=== PATIENT | female | born 1965 | race Caucasian/White ===

== ENCOUNTER 2018-05-21 16:25 | Observation (INO) ==
[2018-05-21] MEDS ORDERED: Sod Chloride 0.9% Inj 1,000 ML IV.SIG ONE ×2 (16:46)
--- NOTE | 2018-05-21 16:56 | ED ---
HPI General Chief Complaint: Overdose Stated Complaint: Medical Time Seen by Provider: 05/21/18 16:37 History of Present Illness HPI Narrative: The patient was seen and examined in the presence of the nurse. This patient was found to be quite altered and obtunded at a bus stop. She managed to get onto a bus and the septic pump truck driver started driving but then noticed she was very altered and pulled over and called 911. She is not able to provide any history or review of systems. She is very altered. She was carrying a case of medications. She has a prescription for 60 Ativan tablets filled 2 days ago and there are only 21 in the bottle. She also has prescriptions for baclofen and other psychiatric medications. Related Data Home Medications Medication Instructions Recorded Confirmed baclofen 20 mg PO TID 05/21/18 05/21/18 buspirone 15 mg PO BID 05/21/18 05/21/18 diphenoxylate-atropine 2 tab PO Q6-8H 05/21/18 05/21/18 escitalopram oxalate 20 mg PO DAILY 05/21/18 05/21/18 gabapentin 100 mg PO TID 05/21/18 05/21/18 lorazepam 0.5 mg PO BID 05/21/18 05/21/18 olanzapine 2.5 mg PO DAILY 05/21/18 05/21/18 olanzapine [Zyprexa] 2.5 mg PO HS 05/21/18 05/21/18 omeprazole 40 mg PO DAILY 05/21/18 05/21/18 progesterone micronized 100 mg PO DAILY 05/21/18 05/21/18 torsemide 10 mg PO DAILY 05/21/18 05/21/18 Allergies Allergy/AdvReac Type Severity Reaction Status Date / Time No Allergy Information Allergy Verified 05/21/18 16:35 Available Review of Systems ROS Unobtainable ROS Unobtainable: unobtainable due to mental status PMFSH Medical History Medical History Medical history unknown (Acute) Surgical history unknown (Acute) Social History Social History Substance History: Unable to Obtain Smoking Status: Unknown if ever smoked How Often Do You Have a Drink Containing Alcohol: Unable to Obtain Recent Travel in [facility] within the Last 8 Weeks: No Recent Out of Country Travel within the Last 8 Weeks: No Immunization History Tetanus Immunization: Unable to Assess Exam Narrative Exam Narrative: GENERAL: Disheveled sedated patient SKIN: Focused skin assessment reveals no rash and nodules. Skin is Warm and dry. HEAD: Atraumatic. Normocephalic. EYES: Pupils equal and round. No scleral icterus. No injection or drainage. ENT: No nasal bleeding or discharge. Mucous membranes pink and moist. She has a gag reflex. She is controlling her airway at this time. NECK: Trachea midline. No JVD. CARDIOVASCULAR: Regular rate and rhythm. No murmur appreciated. RESPIRATORY: No accessory muscle use. Clear to auscultation. Breath sounds equal bilaterally. GASTROINTESTINAL: Abdomen soft, non-tender, nondistended. Hepatic and splenic margins not palpable. MUSCULOSKELETAL: No obvious deformities. No clubbing. No cyanosis. No edema. NEUROLOGICAL: Patient is very drowsy and altered. Her GCS however is 14. She will bottom liquor attendant my hands when I requested. She will open her eyes to loud voice. She is able to answer some basic things like tell me her name. A lot of the questions she just looks at me blankly and does not say anything. Her speech is slurred and difficult to understand. . PSYCHIATRIC: Impossible to test mood and affect; insight and judgment poor. Course Initial Documented Vital Signs Pulse Rate 87 05/21/18 16:27 Respiratory Rate 14 05/21/18 16:27 Blood Pressure 101/61 05/21/18 16:27 Pulse Oximetry 95 05/21/18 16:27 Last Documented Vital Signs Pulse Rate 83 05/21/18 18:24 Respiratory Rate 12 05/21/18 18:24 Blood Pressure 132/76 05/21/18 18:24 Pulse Oximetry 100 05/21/18 18:24 Critical Care Time Critical Care Time: Yes Total Critical Care Time: 77 Attestation: Aggregate critical care time was 77 minutes. Time to perform other separately billable procedures was not included in the critical care time. My time did not include minutes spent treating any other patients simultaneously or on activities that did not directly contribute to the patient's treatment. The services I provided to this patient were to treat and/or prevent clinically significant deterioration that could result in: Loss of airway, aspiration, cardiopulmonary arrest I provided critical care services requiring my management, as noted below: Chart data review, documentation time, medication orders and management, vital sign assessments/reviewing monitor data, ordering and reviewing lab tests, ordering and interpreting/reviewing x-rays and diagnostic studies, care of the patient and discussion of the patient with the admitting physicians. Medical Decision Making MDM Narrative Medical decision making narrative: This is an unknown age female who was found altered at the bus stop. Presentation seems most likely to be an overdose. She is carrying multiple sedating medications and some are clearly missing such as the Ativan from a recently filled prescription. She has pill fragments in the corners of each mouth. She is controlling her airway GCS is 14 but she will require close observation and frequent rechecks. She will need her airway monitored but I do not feel the need to intubate her at this time. If she worsens that we will change. Multiple rechecks have revealed that she is gradually improving over the couple hours she has been here. I think at this point she is stable for regular floor. She saturates at 100% and is controlling her airway. Labs are reviewed. She is a Ativan overdose and possibly multidrug overdose. I reviewed with the hospitalist who will admit. Medical Screen Exam Complete: Yes Emergency Medical Condition: Yes Lab Data Lab results reviewed: Yes I reviewed the patient's lab results. Lab results narrative: Labs reasonably normal Result diagrams: 05/21/18 16:55 05/21/18 16:55 Lab Results 05/21/18 05/21/18 05/21/18 Range/Units 16:55 16:55 16:55 WBC 6.5 (4.0-11.0) th/mm3 RBC 3.97 L (4.00-5.30) mil/mm3 Hgb 13.2 (11.6-15.3) gm/dL Hct 37.5 (35.0-46.0) % MCV 94.6 (80.0-100.0) fL MCH 33.3 (27.0-34.0) pg MCHC 35.2 (32.0-36.0) % RDW 12.0 (11.6-17.2) % Plt Count 195 (150-450) th/mm3 MPV 7.8 (7.0-11.0) fL Neut % (Auto) 65.9 (16.0-70.0) % Lymph % (Auto) 21.7 (9.0-44.0) % [place] % (Auto) 9.6 H (0.0-8.0) % Eos % (Auto) 1.8 (0.0-4.0) % Baso % (Auto) 1.0 (0.0-2.0) % Neut # (Auto) 4.3 (1.8-7.7) th/mm3 Lymph # (Auto) 1.4 (1.0-4.8) th/mm3 [place] # (Auto) 0.6 (0.0-0.9) th/mm3 Eos # (Auto) 0.1 (0.0-0.4) th/mm3 Baso # (Auto) 0.1 (0.0-0.2) th/mm3 WBC Differential . Differential Comment Auto diff final Sodium 142 (136-145) meq/L Potassium 3.3 L (3.5-5.1) meq/L Chloride 108 H (98-107) meq/L Carbon Dioxide 28.0 (21.0-32.0) meq/L Anion Gap 6 (5-15) meq/L BUN 12 (7-18) mg/dL Creatinine 0.96 (0.50-1.00) mg/dL Estimated GFR 50 L (>89) mL/min Random Glucose 92 (74-106) mg/dL Calcium 8.3 L (8.5-10.1) mg/dL Total Bilirubin 0.3 (0.2-1.0) mg/dL AST 19 (15-37) U/L ALT 19 (10-53) U/L Alkaline Phosphatase 73 (45-117) U/L Total Protein 6.7 (6.4-8.2) g/dL Albumin 3.6 (3.4-5.0) g/dL Salicylates 6.1 (2.8-20.0) mg/dL Acetaminophen Less than 2.0 L (10.0-30.0) mcg/mL Serum Alcohol Less than 3 (0-5) mg/dL Imaging Data Attestation: I personally reviewed and interpreted this imaging study as follows : My impression: Brain CT normal Radiologist's impression: Head CT 05/21/18 16:49 CONCLUSION: 1. Unremarkable CT scan of the brain. . Discharge Plan Discharge Order Discharge Orders: Discharge Order (Routine); Ordered 05/21/18 Ordered By: Nikhil Power Physicians Team ED Provider: Nikhil Power Rxs /Orders / Referrals /Forms Prescriptions: No Action torsemide 10 mg Tablet 10 mg PO DAILY RF: 0 diphenoxylate-atropine 2.5-0.025 mg Tablet 2 tab PO Q6-8H RF: 0 olanzapine [Zyprexa] 2.5 mg Tablet 2.5 mg PO HS RF: 0 olanzapine 2.5 mg Tablet 2.5 mg PO DAILY RF: 0 omeprazole 40 mg Capsule,Delayed Release(Dr/Ec) 40 mg PO DAILY RF: 0 baclofen 20 mg Tablet 20 mg PO TID RF: 0 lorazepam 0.5 mg Tablet 0.5 mg PO BID RF: 0 progesterone micronized 200 mg Capsule 100 mg PO DAILY RF: 0 gabapentin 100 mg Capsule 100 mg PO TID RF: 0 buspirone 15 mg Tablet 15 mg PO BID RF: 0 escitalopram oxalate 20 mg Tablet 20 mg PO DAILY RF: 0 Discharge Interventions Interventions: Vital Signs Last Done: 05/21/18 18:24 Status ED Status: With Doctor
[2018-05-21 17:00] LABS: Baso # (Auto) 0.1 th/mm3 (0.0-0.2); Eos # (Auto) 0.1 th/mm3 (0.0-0.4); Eos % (Auto) 1.8 % (0.0-4.0); Hematocrit 37.5 % (35.0-46.0); Hemoglobin 13.2 gm/dL (11.6-15.3); Lymph # (Auto) 1.4 th/mm3 (1.0-4.8); Lymph % (Auto) 21.7 % (9.0-44.0); Mean Corpuscular HGB Conc 35.2 % (32.0-36.0); Mean Corpuscular Hemoglobin 33.3 pg (27.0-34.0); Mean Corpuscular Volume 94.6 fL (80.0-100.0); Mean Platelet Volume 7.8 fL (7.0-11.0); Mono # (Auto) 0.6 th/mm3 (0.0-0.9); Mono % (Auto) 9.6 % (0.0-8.0); Neut # (Auto) 4.3 th/mm3 (1.8-7.7); Neut % (Auto) 65.9 % (16.0-70.0); Platelet Count 195 th/mm3 (150-450); Red Blood Count 3.97 mil/mm3 (4.00-5.30); White Blood Count 6.5 th/mm3 (4.0-11.0)
--- NOTE | 2018-05-21 17:25 | CT ---
EXAM DATE: 05/21/2018 4:55 PM EDT AGE/SEX: 89 years / Female INDICATIONS: Altered mental status. CLINICAL DATA: This is the patient's initial encounter. Patient reports that signs and symptoms have been present for 1 day and indicates a pain score of Nonresponsive. MEDICAL/SURGICAL HISTORY: Non-responsive. Non-responsive. RADIATION DOSE: 56.35 CTDI (mGy) COMPARISON: No prior exams available for comparison. TECHNIQUE: CT of the head without contrast. Using automated exposure control and adjustment of the mA and/or kV according to patient size, radiation dose was kept as low as reasonably achievable to ob tain optimal diagnostic quality images. DICOM format image data is available electronically for revi ew and comparison. FINDINGS: Cerebrum: The ventricles are normal for age. No evidence of midline shift, mass lesion, hemorrhage or acute infarction. No extraaxial fluid collections are seen. Posterior Fossa: The cerebellum and brainstem are intact. The 4th ventricle is midline. The cerebe llopontine angle is unremarkable. Extracranial: The visualized portion of the orbits is intact. Skull: The calvaria is intact. No evidence of skull fracture. CONCLUSION: 1. Unremarkable CT scan of the brain. . Electronically signed by: Herberth Pizano MD 05/21/2018 5:24 PM EDT
[2018-05-21 17:27] LABS: Albumin 3.6 g/dL (3.4-5.0); Anion Gap 6 meq/L (5-15); Aspartate Aminotransferase 19 U/L (15-37); Blood Urea Nitrogen 12 mg/dL (7-18); Calcium 8.3 mg/dL (8.5-10.1); Chloride 108 meq/L (98-107); Glomerular Filtration Rate 50 mL/min (>89); Glucose,Random 92 mg/dL (74-106); Potassium 3.3 meq/L (3.5-5.1); Sodium 142 meq/L (136-145)
[2018-05-21 17:28] LABS: Alanine Aminotransferase 19 U/L (10-53)
[2018-05-21 17:30] LABS: Alkaline Phosphatase 73 U/L (45-117); Total Protein 6.7 g/dL (6.4-8.2)
[2018-05-21] MEDS ORDERED: Bisacodyl 10 MG Supp RECTAL PRN (19:18)
[2018-05-21] MEDS ORDERED: Acetaminophen 325 MG Tablet PO PRN (19:18)
--- NOTE | 2018-05-21 19:41 | P.HPIM ---
History of Present Illness Primary Care Physician: UNKNOWN History of Present Illness: This is a middle-aged white female with unknown PMH who was brought to the ER by EMS as a Nicolette Brewster for AMS. Pt had apparently gotten onto a bus earlier today , business performance specialist noted pt to be lethargic/altered and called 911. Pt found to have multiple pills crushed inside of her mouth and had prescription bottle among her belongings for Ativan 0.5mg filled on 05/19/18 w/ only 20 tablets remaining. On arrival, pt w/ significant lethargy, however maintaining airway. Now more arousable, able to state her name is Perla. BP 132/76, HR 83, O2 sat 100% on 2L NC. CBC unremarkable. K+ 3.3. GFR 50. Urine Drug Screen pending. CT Head unremarkable. - Diagnosis (1) Overdose (2) Dehydration (3) Hypokalemia Review of Systems PAST FAMILY HISTORY: Unknown unobtainable due to mental status PMFSH - History History Provided By: Patient - Medical History Medical History: Medical History (Last Updated 05/21/18 @ 16:31 by Dinora Thurston) Medical history unknown Surgical history unknown - Tobacco History Smoking Status: Unknown if ever smoked - Alcohol History How Often Do You Have a Drink Containing Alcohol: Unable to Obtain - Substance Use History Substance History: Unable to Obtain - Travel History Recent Travel in the [place] Within the Last 8 Weeks: No Recent Travel Out of the Country Within the Last 8 Weeks: No - Immunization History Tetanus Immunization: Unable to Assess Medications and Allergies Active Medications: Active Medications Acetaminophen (Tylenol) 650 mg PO Q4H PRN PRN Reason: Temp > 100.4 Al Hydroxide/Mg Hydroxide (Milk Of Magnesia Liq) 30 ml PO Q12H PRN PRN Reason: Mild Constipation Bisacodyl (Dulcolax Supp) 10 mg RECTAL DAILY PRN PRN Reason: SEVERE CONSITIPATION Sodium Chloride (Ns Inj) 1,000 mls @ 100 mls/hr IV.CONT .Q10H KIERA Lactulose (Lactulose Liq) 30 ml PO DAILY PRN PRN Reason: SEVERE CONSITIPATION Ondansetron HCl (Zofran Inj) 4 mg IV.PUSH Q6H PRN PRN Reason: NAUSEA OR VOMITING Senna/Docusate Sodium (Nicki-Colace) 1 tab PO BID KIERA Sennosides (Senokot) 17.2 mg PO Q12H PRN PRN Reason: Moderate Constipation Allergies Allergy/AdvReac Type Severity Reaction Status Date / Time No Allergy Information Allergy Verified 05/21/18 16:35 Available Home Medications Medication Instructions Recorded Confirmed Type baclofen 20 mg PO TID 05/21/18 05/21/18 History buspirone 15 mg PO BID 05/21/18 05/21/18 History diphenoxylate-atropine 2 tab PO Q6-8H 05/21/18 05/21/18 History escitalopram oxalate 20 mg PO DAILY 05/21/18 05/21/18 History gabapentin 100 mg PO TID 05/21/18 05/21/18 History lorazepam 0.5 mg PO BID 05/21/18 05/21/18 History olanzapine 2.5 mg PO DAILY 05/21/18 05/21/18 History olanzapine [Zyprexa] 2.5 mg PO HS 05/21/18 05/21/18 History omeprazole 40 mg PO DAILY 05/21/18 05/21/18 History progesterone micronized 100 mg PO DAILY 05/21/18 05/21/18 History torsemide 10 mg PO DAILY 05/21/18 05/21/18 History Exam Vital signs: Vital Signs 05/21/18 16:27 05/21/18 16:43 05/21/18 17:08 Pulse Rate 87 91 H 80 Respiratory Rate 14 12 Blood Pressure 101/61 106/62 Pulse Oximetry 95 100 05/21/18 17:10 05/21/18 18:24 05/21/18 19:00 Pulse Rate 83 80 Respiratory Rate 12 Blood Pressure 132/76 Pulse Oximetry 99 100 05/21/18 19:34 Pulse Rate 80 Respiratory Rate 16 Blood Pressure 100/67 Pulse Oximetry 100 Intake & Output 05/21/18 05/21/18 05/22/18 06:59 18:59 06:59 Intake Total 1999 Balance 1999 Weight 58.967 kg Intake: IV 1999 NS Inj 1,000 ML @ Wide Open IV. 1999 SIG BOLUS ONE Rx#:[id number] Narrative: PE: GENERAL: Middle-aged white female in no acute distress, lethargic from overdose , opens eyes to voice, mouthing few words. SKIN: Focused skin assessment warm and dry. HEENT: PERRLA, EOMI. No scleral icterus or conjunctival pallor. No lid lag or facial droop. CARDIOVASCULAR: Regular rate and rhythm. No obvious murmurs to auscultation. No chest tenderness to palpation. RESPIRATORY: No obvious rhonchi or wheezing. Clear to auscultation. Breath sounds equal bilaterally. GASTROINTESTINAL: Abdomen soft, non-tender, nondistended. BS normal. MUSCULOSKELETAL: Extremities without clubbing, cyanosis, or edema. No obvious deformities. NEUROLOGICAL: Lethargic due to overdose. No focal neurologic deficits. Moving both upper and lower extremities spontaneously. PSYCHIATRIC: Appropriate mood and affect. Insight and judgment normal. Results - Labs CBC & Chem 7: 05/21/18 16:55 05/21/18 16:55 Labs: Short CBC 05/21/18 Range/Units 16:55 WBC 6.5 (4.0-11.0) th/mm3 Hgb 13.2 (11.6-15.3) gm/dL Hct 37.5 (35.0-46.0) % Plt Count 195 (150-450) th/mm3 BMP 05/21/18 16:55 Sodium 142 Potassium 3.3 L Chloride 108 H Carbon Dioxide 28.0 BUN 12 Creatinine 0.96 Calcium 8.3 L Liver Function 05/21/18 Range/Units 16:55 Total Bilirubin 0.3 (0.2-1.0) mg/dL AST 19 (15-37) U/L ALT 19 (10-53) U/L Alkaline Phosphatase 73 (45-117) U/L Albumin 3.6 (3.4-5.0) g/dL - Imaging Impressions Head CT 05/21/18 16:49 CONCLUSION: 1. Unremarkable CT scan of the brain. . Caprini VTE Risk Assessment Caprini VTE Risk Assessment: No/Low Risk (score <= 1) Caprini Risk Assessment Model: Point Value = 1 Point Value = 2 Point Value = 3 Point Value = 5 Age 41-60 Minor surgery BMI > 25 kg/m2 Swollen legs Varicose veins or History of unexplained or recurrent spontaneous Oral contraceptives or hormone replacement Sepsis (< 1 month) Serious lung disease, including pneumonia (< 1 month) Abnormal pulmonary function Acute myocardial infarction Congestive heart failure (< 1 month) History of inflammatory bowel disease Medical patient at bed rest Age 61-74 Arthroscopic surgery Major open surgery (> 45 min) Laparoscopic surgery (> 45 min) Malignancy Confined to bed (> 72 hours) Immobilizing plaster cast Central venous access Age >= 75 History of VTE Family history of VTE Factor V Leiden Prothrombin [id number] Lupus anticoagulant Anticardiolipin antibodies Elevated serum homocysteine Heparin-induced thrombocytopenia Other congenital or acquired thrombophilia Stroke (< 1 month) Elective arthroplasty Hip, pelvis, or leg fracture Acute spinal cord injury (< 1 month) Prophylaxis Regimen: Total Risk Factor Score Risk Level Prophylaxis Regimen 0-1 Low Early ambulation 2 Moderate Order ONE of the following: *Sequential Compression Device (SCD) *Heparin 5000 units SQ BID 3-4 Higher Order ONE of the following medications: *Heparin 5000 units SQ TID *Enoxaparin/Lovenox 40 mg SQ daily (WT < 150 kg, CrCl > 30 mL/min) *Enoxaparin/Lovenox 30 mg SQ daily (WT < 150 kg, CrCl > 10-29 mL/min) *Enoxaparin/Lovenox 30 mg SQ BID (WT < 150 kg, CrCl > 30 mL/min) AND/OR *Sequential Compression Device (SCD) 5 or more Highest Order ONE of the following medications: *Heparin 5000 units SQ TID (Preferred with Epidurals) *Enoxaparin/Lovenox 40 mg SQ daily (WT < 150 kg, CrCl > 30 mL/min) *Enoxaparin/Lovenox 30 mg SQ daily (WT < 150 kg, CrCl > 10-29 mL/min) *Enoxaparin/Lovenox 30 mg SQ BID (WT < 150 kg, CrCl > 30 mL/min) AND *Sequential Compression Device (SCD) Assessment and Plan - Assessment (1) Overdose Code(s): T50.901A - Poisoning by unspecified drugs, medicaments and biological substances, accidental (unintentional), initial encounter Status: Acute (2) Dehydration Code(s): E86.0 - Dehydration Status: Acute (3) Hypokalemia Code(s): E87.6 - Hypokalemia Status: Acute - Plan A/P: 1. Overdose: found to be lethargic/altered by business performance specialist, +crushed pills in her mouth, prescription bottle for Ativan 0.5mg filled on 05/19/18 for 60 tablets w/ 20 tablets remaining. Maintaining airway. Slightly more arouseable now, opens eyes to voice, mouths few words. Admit for further observation, Neuro Checks. 2. Dehydration: GFR 50, IVF for hydration, monitor I/O, repeat labs in am. 3. Hypokalemia: K+ 3.3, repeat labs in am, replace as needed 4. DVT Prophylaxis: SCD/Teds 5. Social work for d/c planning as needed 6. Case discussed w/ ER physician at length, labs/records/imaging reviewed by me.
[2018-05-21] MEDS: Sod Chloride 0.9% Inj 1,000 ML IV.CONT SCH (19:49)
[2018-05-21] MEDS: Senna/Docusate Sodium 8.6/50 MG Tablet PO SCH (20:01)
[2018-05-22] MEDS: Sod Chloride 0.9% Inj 1,000 ML IV.CONT SCH (07:30)
[2018-05-22 08:09] LABS: Amphetamine Screen,Urine Neg (Neg); Barbiturate Screen,Urine Neg (Neg); Cannabinoid Screen,Urine Neg (Neg); Cocaine Screen,Urine Neg (Neg)
[2018-05-22 08:17] LABS: Opiate Screen,Urine Neg (Neg)
[2018-05-22 08:32] LABS: Baso % (Auto) 0.6 % (0.0-2.0); Eos # (Auto) 0.2 th/mm3 (0.0-0.4); Eos % (Auto) 2.8 % (0.0-4.0); Hematocrit 36.4 % (35.0-46.0); Hemoglobin 12.4 gm/dL (11.6-15.3); Lymph # (Auto) 1.5 th/mm3 (1.0-4.8); Lymph % (Auto) 23.9 % (9.0-44.0); Mean Corpuscular Hemoglobin 32.8 pg (27.0-34.0); Mean Corpuscular Volume 96.5 fL (80.0-100.0); Mono # (Auto) 0.6 th/mm3 (0.0-0.9); Mono % (Auto) 9.5 % (0.0-8.0); Neut % (Auto) 63.2 % (16.0-70.0); Platelet Count 180 th/mm3 (150-450); Red Blood Count 3.78 mil/mm3 (4.00-5.30); Red Cell Distribution Width 12.1 % (11.6-17.2); White Blood Count 6.3 th/mm3 (4.0-11.0)
[2018-05-22 08:53] LABS: Albumin 2.8 g/dL (3.4-5.0); Calcium 7.4 mg/dL (8.5-10.1); Carbon Dioxide 26.9 meq/L (21.0-32.0); Potassium 3.7 meq/L (3.5-5.1); Total Protein 5.4 g/dL (6.4-8.2)
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
[2018-05-22] MEDS: Senna/Docusate Sodium 8.6/50 MG Tablet PO SCH ×2 (10:59→20:55)
[2018-05-22] MEDS ORDERED: Diphenoxylate/Atropine 2.5/0.025 MG Tablet PO PRN (17:26)
[2018-05-22] MEDS: Thyroid 15 MG Tablet PO SCH (17:36)
[2018-05-22] MEDS: Gabapentin 100 MG Capsule PO SCH (18:16)
[2018-05-22] MEDS: Mesalamine 250 MG Capsule ER PO SCH ×2 (18:16→20:53)
[2018-05-23 04:59] LABS: Calcium 8.4 mg/dL (8.5-10.1); Carbon Dioxide 25.3 meq/L (21.0-32.0); Potassium 3.6 meq/L (3.5-5.1)
[2018-05-23] MEDS ORDERED: PROGESTERONE MICRONIZED 100 MG PO SCH (09:00)
[2018-05-23] MEDS: Senna/Docusate Sodium 8.6/50 MG Tablet PO SCH ×2 (09:16→21:45)
[2018-05-23] MEDS: Gabapentin 100 MG Capsule PO SCH ×2 (09:16→13:16)
[2018-05-23] MEDS: Thyroid 15 MG Tablet PO SCH (09:17)
[2018-05-23] MEDS: Mesalamine 250 MG Capsule ER PO SCH ×4 (09:17→21:45)
--- NOTE | 2018-05-23 10:25 | P.PNIM ---
Subjective Interval history: States that she is not suicidal. She has no thoughts of harming herself or others. She does not recall why she had pills in her mouth and what led to her admission. She states that she was kicked out of her previous residence due to slurring her speech. She states that she had a history of traumatic brain injury and therefore's at times slurs her speech. She does not attribute that to drug abuse or drug use. She does smoke 1 pack of cigarettes on a daily basis basis and is craving for nicotine right now. She states that she has chronic pain syndrome due to degenerative joint disease and having hip replacements in the past. She takes gabapentin 900 mg p.o. 3 times daily. She has severe anxiety disorder which she takes BuSpar, Lexapro, doxepin, Zyprexa two-point 5 at night. She states that she wants to be released today. Physical Exam Vital signs: Vital Signs 05/22/18 12:00 05/22/18 16:00 05/22/18 20:00 Temperature 98.5 F 97.6 F 98.2 F Pulse Rate 93 H 76 85 Respiratory Rate 16 16 16 Blood Pressure 91/54 L 103/61 104/60 Pulse Oximetry 99 99 98 05/22/18 20:07 05/23/18 00:00 05/23/18 00:42 Temperature 98.0 F Pulse Rate 84 91 H 90 Respiratory Rate 16 Blood Pressure 103/61 Pulse Oximetry 94 L 05/23/18 04:00 05/23/18 04:04 05/23/18 05:24 Temperature 97.7 F Pulse Rate 85 84 Respiratory Rate 16 18 Blood Pressure 130/66 Pulse Oximetry 94 L Intake & Output 05/22/18 05/23/18 05/23/18 18:59 06:59 18:59 Intake Total 1100 / 1100 Output Total 1800 / 1800 Balance -700 / -700 Weight 58.9 kg Intake: IV 1000 / 1000 NS Inj 1,000 ML @ 100 mls/hr IV 1000 / 1000 .CONT .Q10H KIERA Rx#:[id number] Oral 100 / 100 Output: Urine Amount (Catheter) 1800 / 1800 Straight 1800 / 1800 Other: # Voids 1 4 Date of Last Bowel Movement 05/20/18 # Bowel Movements 0 1 Narrative: GENERAL: This is a well-nourished, well-developed patient, in no apparent distress. CARDIOVASCULAR: Regular rate and rhythm RESPIRATORY: Clear to auscultation. Breath sounds equal bilaterally. No wheezes , rales, or rhonchi. GASTROINTESTINAL: Abdomen soft, non-tender, nondistended. Normal active bowel sounds MUSCULOSKELETAL: Extremities without clubbing, cyanosis, or edema. NEURO: Alert & Oriented x4 to person, place, time, situation. Moves all ext x4 - Urinary Catheter Management Straight Cath placed during this visit: no Results - Labs CBC & Chem 7: 05/22/18 05:38 05/23/18 03:42 Laboratory Results - last 24 hr 05/23/18 03:42 Sodium 142 Potassium 3.6 Chloride 110 H Carbon Dioxide 25.3 Anion Gap 7 BUN 10 Creatinine 0.66 Estimated GFR 77 L Random Glucose 83 Calcium 8.4 L D Assessment and Plan - Assessment (1) Overdose Code(s): T50.901A - Poisoning by unspecified drugs, medicaments and biological substances, accidental (unintentional), initial encounter Status: Acute (2) Dehydration Code(s): E86.0 - Dehydration Status: Acute (3) Hypokalemia Code(s): E87.6 - Hypokalemia Status: Acute - Plan middle age female admitted for OD, poss intentional. Hx of substance abuse, has been clean x 65 days, currently living at a sober home. Was kicked out 05/21 and was upset and took pills. Denies SI at this time. Drug overdose: found to be lethargic/altered by day haul or farm charter bus driver, +crushed pills in her mouth, prescription bottle for Ativan 0.5mg filled on 05/19/18 for 60 tablets w/ 20 tablets remaining. Also on Buspar, Baclofen, Doxepin, Gabapentin Denies illegal drug use, hx of meth and percocet abuse Hx of anxiety, with prior psych admission UDT negative -Hold all medications until evaluated by psychiatry neuro checks has been stable and patient is currently alert and oriented x4 -Continue with supportive care and sitter in room -Await psychiatry consultation. Dehydration with hypernatremia -IVF given, now resolved. Patient has tolerated p.o. Hypokalemia: K+ 3.3 -K 3.7 today Hx of Ulcerative colitis -stable has 2 BMs daily On Asacol -hold for now Tobacco abuse -Counseling done -Nicotine patch ordered Chronic pain syndrome - start gabapentin SCDs for DVT prophylaxis Discharge Planning: Discharge plan based on psychiatry evaluation.
[2018-05-23] MEDS ORDERED: clonazePAM 0.5 MG Tablet PO STA (16:07)
[2018-05-23] MEDS: Escitalopram 10 MG Tablet PO SCH (16:12)
[2018-05-23] MEDS: Gabapentin 300 MG Capsule PO SCH (17:54)
[2018-05-23] MEDS ORDERED: ALPRAZolam 0.25 MG Tablet PO ONE (22:11)
[2018-05-24] MEDS: clonazePAM 0.5 MG Tablet PO SCH ×2 (06:13→08:10)
[2018-05-24] MEDS: Gabapentin 300 MG Capsule PO SCH ×2 (08:11→12:17)
[2018-05-24] MEDS: Senna/Docusate Sodium 8.6/50 MG Tablet PO SCH (08:11)
[2018-05-24] MEDS: Mesalamine 250 MG Capsule ER PO SCH ×2 (08:11→12:17)
[2018-05-24] MEDS: Thyroid 15 MG Tablet PO SCH (08:11)
[2018-05-24] MEDS: Escitalopram 10 MG Tablet PO SCH (08:11)
[2018-05-24 09:01] VITALS: RESP 18; O2SAT 96
[2018-05-24 12:17] VITALS: BP 91/58; PULSE 106; TEMP 98.2
--- NOTE | 2018-05-24 13:52 | P.CONPSY ---
Provisional Diagnosis Admission Date: May 21, 2018 19:18 [place] I.: Substance-induced psychosis, methamphetamines and opiates use disorder, early full remission, alcohol use disorder, sustained full remission, history of anxiety, OCD, substance-induced psychosis [place] II.: Deferred [place] III.: GERD, hip and shoulder pain [place] IV.: Recent separation [place] V.: 53 History of Present Illness Service: Medicine Primary Care Provider: UNKNOWN History of Present Illness: The patient is a 52-year-old woman, domiciled with a roommate in [facility], she is but , employed, with a self-reported psychiatric history of anxiety, substance-induced psychosis, alcohol use disorder, sustained full remission, methamphetamines and opiates use disorder in early full remission, 1 previous psychiatric hospitalization many years ago in [place], one previous suicide attempt, history of self cutting behavior without SI, the patient is on olanzapine 10 mg, Lexapro 20 mg, gabapentin 300 mg 3 times daily, BuSpar 30 mg 3 times daily, doxepin 50 mg prescribed by PCP, with a medical history of hip and shoulder pain, GERD, who was brought to the ER by EMS as a Nicolette Brewster for AMS. Pt had apparently gotten onto a bus earlier today, business services specialist sales noted pt to be lethargic/altered and called 911. Pt found to have multiple pills crushed inside of her mouth and had prescription bottle among her belongings for Ativan 0.5mg filled on 05/19/18 w/ only 20 tablets remaining. On arrival, pt w/ significant lethargy, however maintaining airway. Now more arousable, able to state her name is Perla. BP 132/76, HR 83, O2 sat 100% on 2L NC. CBC unremarkable. K+ 3.3. GFR 50. Urine Drug Screen negative. CT Head unremarkable. Chart was reviewed. Case was discussed with nurse in charge. On psychiatric evaluation the patient is calm, cooperative, pleasant. The patient reports that she does not really remember what happened and what is the reason she is hospitalized, she took some pills for anxiety and ended up passing out and losing consciousness. When I explained to the patient that she is on the Hernández act for suicidal ideation, she denies any this statement stating that she did not try to commit suicide and she was just trying to double up her medications for anxiety because she did not take it during the day. At the moment of my evaluation the patient looks in a good spirit, she denies symptomatology of depression, reports good mood, she is future oriented, the patient has over her bed a referral for a sober living facility: [facility], and she is already connected and accepted in order to be discharge to 1 of them. During my evaluation the patient is logical , coherent and relevant, oriented x3. There is not agitation, aggressive behavior, loosening of associations, delusions, lola, flight of ideas, delusions of reference. Review of Systems All other systems reviewed negative except as stated in HPI [facility] - History History Provided By: Patient - Medical History Medical History: Medical History (Last Updated 05/21/18 @ 16:31 by Dinora Thurston) Medical history unknown Surgical history unknown - Tobacco History Second Hand Smoke Exposure: Yes Tobacco Use In Past 30 Days: Yes Smoking Status: Current every day smoker Tobacco Type: Cigarettes - Alcohol History How Often Do You Have a Drink Containing Alcohol: Never - Substance Use History Substance History: Active Abuse - Substance Use Type Methamphetamine Status: Active Frequency: snort Comment: patient states "I have been clean for 58 days now" Opiates Status: Active Frequency: crush and snort Comment: patient states "I have been clean for 58 days" - Travel History Recent Travel in the [place] Within the Last 8 Weeks: No Recent Travel Out of the Country Within the Last 8 Weeks: No - Immunization History Tetanus Immunization: Unsure Medications and Allergies Active Medications: Active Medications Acetaminophen (Tylenol) 650 mg PO Q4H PRN PRN Reason: Temp > 100.4 Al Hydroxide/Mg Hydroxide (Milk Of Wilner Rae) 30 ml PO Q12H PRN PRN Reason: Mild Constipation Bisacodyl (Dulcolax Supp) 10 mg RECTAL DAILY PRN PRN Reason: SEVERE CONSITIPATION Buspirone HCl (Buspar) 10 mg PO TID REPLACED BY [facility] Last Admin: 05/24/18 12:17 Dose: 10 mg Clonazepam (Klonopin) 0.5 mg PO BID REPLACED BY [facility] Diphenoxylate HCl/Atropine (Lomotil) 2 tab PO Q6H PRN PRN Reason: Diarrhea Escitalopram Oxalate (Lexapro) 10 mg PO DAILY REPLACED BY [facility] Last Admin: 05/24/18 08:11 Dose: 10 mg Gabapentin (Neurontin) 300 mg PO TID REPLACED BY [facility] Last Admin: 05/24/18 12:17 Dose: 300 mg Lactulose (Lactulose Liq) 30 ml PO DAILY PRN PRN Reason: SEVERE CONSITIPATION Mesalamine (Pentasa Sr) 1,000 mg PO QID REPLACED BY [facility] Last Admin: 05/24/18 12:17 Dose: 1,000 mg Nicotine (Habitrol 14 Mg Patch.24 Hr) 1 patch T-DERMAL DAILY REPLACED BY [facility] Last Admin: 05/24/18 08:11 Dose: 1 patch Ondansetron HCl (Zofran Inj) 4 mg IV.PUSH Q6H PRN PRN Reason: NAUSEA OR VOMITING Pantoprazole Sodium (Protonix) 40 mg PO DAILY REPLACED BY [facility] Last Admin: 05/24/18 08:11 Dose: 40 mg Patch Removal (Remove Old Patch) 1 each T-DERMAL HS REPLACED BY [facility] Last Admin: 05/23/18 21:45 Dose: 1 each Pom: (Progesterone Micronized [ Progesterone Micronized] 100 Mg) 0 each PO DAILY REPLACED BY [facility] Senna/Docusate Sodium (Nicki-Colace) 1 tab PO BID REPLACED BY [facility] Last Admin: 05/24/18 08:11 Dose: 1 tab Sennosides (Senokot) 17.2 mg PO Q12H PRN PRN Reason: Moderate Constipation Thyroid ([place] Thyroid) 30 mg PO DAILY REPLACED BY [facility] Last Admin: 05/24/18 08:11 Dose: 30 mg Torsemide (Demadex) 10 mg PO DAILY REPLACED BY [facility] Last Admin: 05/24/18 08:11 Dose: 10 mg Allergies Allergy/AdvReac Type Severity Reaction Status Date / Time No Allergy Information Allergy Verified 05/21/18 16:35 Available Home Medications Medication Instructions Recorded Confirmed Type baclofen 20 mg PO TID 05/21/18 05/21/18 History buspirone 15 mg PO BID 05/21/18 05/21/18 History diphenoxylate-atropine 2 tab PO Q6-8H 05/21/18 05/21/18 History escitalopram oxalate 20 mg PO DAILY 05/21/18 05/21/18 History gabapentin 100 mg PO TID 05/21/18 05/21/18 History lorazepam 0.5 mg PO BID 05/21/18 05/21/18 History olanzapine 2.5 mg PO DAILY 05/21/18 05/21/18 History olanzapine [Zyprexa] 2.5 mg PO HS 05/21/18 05/21/18 History omeprazole 40 mg PO DAILY 05/21/18 05/21/18 History progesterone micronized 100 mg PO DAILY 05/21/18 05/21/18 History torsemide 10 mg PO DAILY 05/21/18 05/21/18 History diphenoxylate-atropine [Lomotil] 2 tab PO Q6-8H PRN 05/22/18 05/22/18 History mesalamine [Pentasa] 1,000 mg PO QID 05/22/18 05/22/18 History thyroid (pork) [Cl[place]ridge Thyroid] 30 mg PO DAILY 05/22/18 05/22/18 History Exam Vital signs: Vital Signs 05/23/18 16:00 05/23/18 20:00 05/24/18 00:00 Temperature 97.5 F L 98.3 F 98.0 F Pulse Rate 94 H 76 73 Respiratory Rate 17 18 16 Blood Pressure 98/61 L 108/63 84/52 L Pulse Oximetry 99 97 95 05/24/18 04:00 05/24/18 08:00 05/24/18 12:00 Temperature 97.4 F L 97.6 F 98.2 F Pulse Rate 62 70 106 H Respiratory Rate 16 18 18 Blood Pressure 90/54 L 96/57 L 91/58 L Pulse Oximetry 99 96 96 Intake & Output 05/23/18 05/24/18 05/24/18 18:59 06:59 18:59 Weight 59.6 kg Other: # Voids 4 5 Date of Last Bowel Movement 05/22/18 05/22/18 05/22/18 # Bowel Movements 2 Narrative: No tremors, no EPS, no withdrawal symptoms, no catatonia present - Constitutional no acute distress - Routine HEENT Exam Head: Present: normocephalic, atraumatic ENT: Present: mucous membranes moist Mental Status Examination Appearance: Appropriate Consciousness: Alert Orientation: x4 Speech: Unremarkable Language: Adequate Fund of Knowledge: Adequate Attention and Concentration: Adequate Memory: Unremarkable Mood: Good Affect: Appropriate Thought Process & Associations: Intact Thought Content: Appropriate Hallucination Type: None Delusion Type: None Suicidal Ideation: No Suicidal Plan: No Suicidal Intention: No Homicidal Ideation: No Homicidal Plan: No Homicidal Intention: No Insight: Adequate Judgment: Adequate Assessment and Plan - Plan Plan: Estimated LOS: [] days No admission is indicated at the moment. Justification for Continued Inpatient Stay: On my psychiatric evaluation today the patient does not present any neuropsychiatric symptoms or require an immediate psychiatric intervention. There is no acute, concerning or significant evidence of objective or subjective depression, anxiety, lola or psychosis at the moment. The patient denies suicidal and homicidal ideation, she denies visual and auditory hallucinations. During the evaluation the patient is logical, coherent and relevant, oriented x3. There is no fluctuation of consciousness, no attention deficit. This patient does not meet criteria for involuntary psychiatric admission at the moment. The patient has a significant psychiatric history of anxiety, substance-induced psychosis, alcohol, amphetamines, opiates use disorder, suicidal attempts, self cutting behavior without SI. Recent overdose with medication was most probably the result of maladaptive use of narcotics/ tolerance related with history of addiction and increased anxiety related with recent separation from her . The patient is motivated to be discharged to a sober living facility. Continue clonazepam 0.5 mg twice daily for anxiety , gabapentin 300 mg 3 times daily for anxiety and pain, escitalopram 20 mg for anxiety and depression. Extensive support, motivation and psychoeducation provided. Consult appreciated.
--- NOTE | 2018-05-24 14:31 | P.DS ---
Date of admission: 05/21/18 19:18 Primary care physician: UNKNOWN Brief History from admission: This is a middle-aged white female with unknown PMH who was brought to the ER by EMS as a Nicolette Brewster for AMS. Pt had apparently gotten onto a bus earlier today , school bus technician noted pt to be lethargic/altered and called 911. Pt found to have multiple pills crushed inside of her mouth and had prescription bottle among her belongings for Ativan 0.5mg filled on 05/19/18 w/ only 20 tablets remaining. On arrival, pt w/ significant lethargy, however maintaining airway. Now more arousable, able to state her name is Perla. BP 132/76, HR 83, O2 sat 100% on 2L NC. CBC unremarkable. K+ 3.3. GFR 50. Urine Drug Screen pending. CT Head unremarkable. Patient update on day of discharge: Patient denies any suicidal ideations. Tolerating diet. Wants to go home. No other concerns. DS: Diagnosis - Discharge Diagnosis (1) Overdose Status: Resolved Diagnosis: Principal (2) Dehydration Status: Resolved Diagnosis: Secondary (3) Hypokalemia Status: Resolved Diagnosis: Secondary DS: Summary Hospital Course: These are the medical issues addressed during this hospitalization: 52-year-old female admitted for OD, poss intentional. Hx of substance abuse, has been clean x 65 days, currently living at a sober home. Was kicked out 05/21 and was upset and took pills. Denies SI at this time. 1. Drug overdose: found to be lethargic/altered by school bus technician, +crushed pills in her mouth, prescription bottle for Ativan 0.5mg filled on 05/19/18 for 60 tablets w/ 20 tablets remaining. Also on Buspar, Baclofen, Doxepin, Gabapentin Denies illegal drug use, hx of meth and percocet abuse Hx of anxiety, with prior psych admission UDT negative Restarted Lexapro and gabapentin. Psychiatry started Klonopin to prevent withdrawal from benzos. neuro checks has been stable and patient is currently alert and oriented x4 Status post Hernández act which has now been lifted by psychiatry for outpatient follow-up. 2. Dehydration with hypernatremia -IVF given, now resolved. Patient has tolerated p.o. 3. Hypokalemia: Repleted 4. Hx of Ulcerative colitis -stable has 2 BMs daily On Asacol -hold for now 5. Tobacco abuse -Counseling done -Nicotine patch ordered 6. Chronic pain syndrome - start gabapentin SCDs for DVT prophylaxis - Time Spent with Patient Total time spent providing and/or coordinating discharge services: Less than 30 minutes - Quality: VTE Deep Vein Thrombosis/Pulmonary Embolism Present on Admission: No Exam Vital signs: Vital Signs 05/23/18 16:00 05/23/18 20:00 05/24/18 00:00 Temperature 97.5 F L 98.3 F 98.0 F Pulse Rate 94 H 76 73 Respiratory Rate 17 18 16 Blood Pressure 98/61 L 108/63 84/52 L Pulse Oximetry 99 97 95 05/24/18 04:00 05/24/18 08:00 05/24/18 12:00 Temperature 97.4 F L 97.6 F 98.2 F Pulse Rate 62 70 106 H Respiratory Rate 16 18 18 Blood Pressure 90/54 L 96/57 L 91/58 L Pulse Oximetry 99 96 96 Intake & Output 05/23/18 05/24/18 05/24/18 18:59 06:59 18:59 Weight 59.6 kg Other: # Voids 4 5 Date of Last Bowel Movement 05/22/18 05/22/18 05/22/18 # Bowel Movements 2 Narrative: GENERAL: This is a well-nourished, well-developed patient, in no apparent distress. CARDIOVASCULAR: Regular rate and rhythm RESPIRATORY: Clear to auscultation. Breath sounds equal bilaterally. No wheezes , rales, or rhonchi. GASTROINTESTINAL: Abdomen soft, non-tender, nondistended. Normal active bowel sounds MUSCULOSKELETAL: Extremities without clubbing, cyanosis, or edema. NEURO: Alert & Oriented x4 to person, place, time, situation. Moves all ext x4 Results Procedures completed during hospitalization: None - Impressions ITS Impressions Head CT 05/21/18 16:49 CONCLUSION: 1. Unremarkable CT scan of the brain. . Discharge Plan - Discharge Disposition Patient Disposition: 01 Discharge Home - Discharge Condition Condition: Good - Discharge Order Discharge Orders: Discharge Order (Routine); Ordered 05/21/18 Ordered By: Nikhil Power - Discharge Details Anticipated Discharge Date: 05/24/18 - Physicians Team Primary Care Provider: UNKNOWN, Attending Provider: Fern De Luna Other Providers: Cassius Winters MD
[2018-05-24] MEDS ORDERED: ALPRAZolam 0.25 MG Tablet PO ONE (15:15)
[2018-05-24] MEDS ORDERED: clonazePAM 0.5 MG Tablet PO SCH (21:00)
== END 2018-05-24 18:00 | disposition home or self-care (01) ==
LOC: NEPC 16:25 → NEDA 18:42 → INTOOBSV 18:42 → EDBD 19:18 → NEDA 20:19 → N06 20:21
PROVIDERS: ADMIT Family Medicine; ATTEND Family Medicine